=== PATIENT | female | born 1985 | race African-American/Black ===

== ENCOUNTER 2020-12-22 14:02 | Emergency (ER) | payer OTHER, SELFPAY ==
--- NOTE | 2020-12-22 14:08 | ED.EAR ---
HPI - Ear Problem General Chief complaint: Ear Stated complaint: ear pain Time Seen by Provider: 12/22/20 14:18 Source: patient and RN notes reviewed Mode of arrival: ambulatory Limitations: no limitations History of Present Illness HPI Narrative: 35-year-old female presents concern for left ear pain for several days. She denies rhinorrhea, nasal congestion, ear drainage, sore throat, decreased hearing, ringing in the ear. Reports taking Tylenol ibuprofen with relief. Denies cough, shortness of breath, loss of sense of taste or smell. Reports she may have problems with her wisdom teeth on the left side, however has not been to a dentist. MD Complaint: ear pain Related Data Allergies Allergy/AdvReac Type Severity Reaction Status Date / Time Sulfa (Sulfonamide Allergy Intermediate Unknown Verified 12/22/20 14:18 Antibiotics) sinus med Allergy Intermediate Unknown Uncoded 12/22/20 14:18 ANDALDACON Allergy Unknown Unknown Uncoded 12/22/20 14:18 Review of Systems Review of Systems: Narrative: CONSTITUTIONAL: Denies malaise, chills, sweats, or fever. EYES: Denies visual changes, redness, or discharge. ENT: Denies rhinorrhea, congestion, sinus pain, and sore throat. Reports left ear pain, denies drainage CARDIOVASCULAR: Denies chest pain, palpitations, or edema. RESPIRATORY: Denies cough or dyspnea. GASTROINTESTINAL: Denies abdominal pain, nausea, vomiting, diarrhea SKIN: Denies rash or itching. MUSCULOSKELETAL: Denies myalgia. NEUROLOGIC: Denies headache. All systems reviewed & are unremarkable except as noted in HPI and below PMFSH Comments At time of signature, agree with nursing past medical, surgical, social and family history. There is no relevant family history pertinent to the presenting complaint Exam Narrative: Exam Narrative: GENERAL: Well-appearing, well-nourished, and in no acute distress. HEAD: Normocephalic EYES: PERRLA, conjunctivae clear ENT: Nares clear, turbinates pink, no discharge. Mucous membranes moist. TM pearly rose with sharp light reflex bilaterally; no tragal tenderness. Oropharynx mildly erythematous without lesions. Tonsils not enlarged and without exudate, no drooling, no hoarseness, no trismus, uvula midline. NECK: Supple. No lymphadenopathy CHEST: Clear to auscultation, breath sounds equal. No wheezing, rhonchi, rales, or stridor. No respiratory distress, speaks in full sentences. HEART: Regular rate and rhythm. No murmur heard. SKIN: Warm, dry, no rash. NEURO: Alert and oriented x3. PSYCH: Normal mood and affect Course Course Emergency Course: Patient is aware of diagnosis, understands and agrees to treatment plan. Anticipatory guidance given. Patient agrees to follow-up as directed and is aware of reasons to seek care at the emergency department. Portions of this record may have been created with voice recognition software Vital Signs Vital signs: Reviewed. Medical Decision Making MDM Narrative Medical decision making narrative: Differential diagnosis considered: Ceron virus, strep pharyngitis, allergic rhinitis, upper respiratory tract infection, sinusitis, rhinosinusitis, nasopharyngitis. viral pharyngitis, otitis media, otitis externa, pneumonia, bronchitis, viral cough syndrome, viral syndrome, and influenza. Exam findings show no acute concerns or changes; patient is non-toxic appearing and is in no distress. Patient is appropriate for outpatient treatment and follow-up. Lab Data Lab results reviewed: Yes I reviewed the patient's lab results. Critical Care Time Critical Care Time Critical Care Time: No Discharge Plan Discharge Clinical Impression: Ear ache Patient Disposition: Home, Self-Care Condition: Stable Additional Instructions: 1) Please follow-up with your primary care doctor or dentist in the next 1-2 days. 2) If you have any urgent concerns please go to the ER. 3) Please take medications as prescribed, and use Tylenol and ibuprofen as needed for pain. Your r
[2020-12-22 14:10] VITALS: BP 124/83; PULSE 93; RESP 20; TEMP 37.1; O2SAT 100
== END 2020-12-22 14:40 | disposition home or self-care (01) ==
PROVIDERS: Emergency Provider Nurse Practitioner
DX: H92.02 Otalgia, left ear (principal)
CPT/HCPCS: 87081; 87880; 99213; G0463

== ENCOUNTER 2021-04-30 08:19 | Emergency (ER) | payer OTHER, SELFPAY ==
[2021-04-30 08:26] VITALS: BP 128/70; PULSE 78; RESP 16; TEMP 36.7; O2SAT 100
--- NOTE | 2021-04-30 09:38 | ED.URI ---
HPI - URI/Sore Throat General Chief Complaint: Upper Respiratory Infection Stated Complaint: voice sounds gravely Time Seen by Provider: 04/30/21 09:15 Source: patient, RN notes reviewed and old records reviewed Mode of arrival: ambulatory Limitations: no limitations History of Present Illness HPI Narrative: 36 year old female who presents to [facility] with complaints of awakening this morning with hoarseness to voice. Patient reports that her kids have all had colds lately and she has been exposed to them. Patient states that she does have history of some seasonal allergies. Patient denies any known fevers chills or sweats or any body aches,has not had COVID vaccinations. Patient denies any cough or any shortness of breath,no wheezing or any tachypnea. Patient has not taken any OTC medications. MD elicited complaint: other (hoarseness) Related Data Home Medications Medication Instructions Recorded Confirmed No Home Medications 04/30/21 04/30/21 Allergies Allergy/AdvReac Type Severity Reaction Status Date / Time Sulfa (Sulfonamide Allergy Intermediate Unknown Verified 04/30/21 08:47 Antibiotics) sinus med Allergy Intermediate Unknown Uncoded 12/22/20 14:18 ANDALDACON Allergy Unknown Unknown Uncoded 12/22/20 14:18 Review of Systems Review of Systems: CONSTITUTIONAL: Denies fever, chills, or sweats. EYES: Denies visual changes, redness, or discharge. ENT: Denies rhinorrhea, congestion, sore throat, or otalgia.hoarseness CARDIOVASCULAR: Denies chest pain, palpitations, or edema. RESPIRATORY: Denies cough or dyspnea. GASTROINTESTINAL: Denies abdominal pain, nausea, vomiting, or diarrhea. GENITOURINARY: Denies dysuria or hematuria. SKIN: Denies rash or itching. MUSCULOSKELETAL: Denies back pain, joint pain, or myalgia. NEUROLOGIC: Denies headache, numbness, or weakness. PSYCHIATRIC: Denies anxiety or depression. All systems reviewed & are unremarkable except as noted in HPI and below PMFSH Past Medical History Medical History (Updated 05/07/21 @ 14:25 by Viv Townsend NP) Asthma as child Seasonal allergies Surgical History Surgical History (Updated 05/07/21 @ 14:22 by Viv Townsend NP) History of loop electrical excision procedure (LEEP) Previous section X4 [place] teeth extracted Family History Family History (Updated 05/07/21 @ 14:23 by Viv Townsend NP) Mother COPD (chronic obstructive pulmonary disease) Asthma Cervical cancer Social History Social History (Updated 05/07/21 @ 14:24 by Viv Townsend NP) Smoking packs per day: 0.5 Smoking cigarettes per day: 10.0 Years smoked: 10 Smoking pack-years: 5.00 Smoking status: Current every day smoker Alcohol intake: current Alcohol use details: social Substance use: never Living arrangements: with family Gender identity (if verbalized by the patient): Female Comments At time of signature, agree with nursing past medical, surgical, social and family history. There is no relevant family history pertinent to the presenting complaint Exam Narrative: GENERAL: Well-appearing, well-nourished, and in no acute distress. HEAD: Normocephalic, atraumatic. EYES: PERRLA and EOMI. ENT: Nares clear, no rhinorrhea or epistaxis. Mucous membranes moist.TM's normal with good light reflex, throat pink with no lesions or exudates, no tonsil redness or enlargement, some post nasal drainage noted NECK: Supple.no lymphadenopathy CHEST: Clear to auscultation. No respiratory distress.SAO2 100% on room air HEART: Regular rate and rhythm. No murmur heard. Normal peripheral pulses. ABDOMEN: Soft, nontender, nondistended, normal active bowel sounds. EXTREMITIES: Normal range of motion. No edema. SKIN: Warm, dry, no rash. NEURO: No focal deficits. Alert and oriented x3. Course Vital Signs Vital signs: Vital Signs Temperature 36.7 C 04/30/21 08:26 Pulse Rate 78 04/30/21 08:26 Respiratory Rate 16
== END 2021-04-30 10:00 | disposition home or self-care (01) ==
PROVIDERS: Emergency Provider Registered Nurse
DX: R49.0 Dysphonia (principal); J06.9 Acute upper respiratory infection, unspecified
CPT/HCPCS: 87081; 87880; 99213; G0463

== ENCOUNTER 2021-09-08 11:40 | Emergency (ER) | payer OTHER, SELFPAY ==
[2021-09-08 11:44] VITALS: BP 106/64; PULSE 108; RESP 14; TEMP 37.1; O2SAT 100
--- NOTE | 2021-09-08 11:45 | ED.HA ---
HPI - Headache General Chief Complaint: Upper Respiratory Infection Stated Complaint: Headahce Time Seen by Provider: 09/08/21 11:45 Source: patient and RN notes reviewed History of Present Illness HPI Narrative: Patient is a 36-year-old female who presents the urgent care with complaints of headache, sinus pressure/congestion, sore throat and postnasal drainage. Patient states that started Tuesday night and 1 other person in the home has been symptomatic. That patient was tested at school today and has not had results. Patient states that she has a history of migraines which is just exacerbated the frontal headache. Patient has been taking Aleve, Tylenol, Nasonex. Denies of any known exposures to COVID. Patient is not vaccinated. No other acute complaints. No acute distress noted. Patient aware of the plan of care. Some parts of this dictation were generated by voice recognition software and may contain typographical and/or grammatical inaccuracies. Related Data Allergies Allergy/AdvReac Type Severity Reaction Status Date / Time Sulfa (Sulfonamide Allergy Intermediate Unknown Verified 09/08/21 11:49 Antibiotics) sinus med Allergy Intermediate Unknown Uncoded 12/22/20 14:18 ANDALDACON Allergy Unknown Unknown Uncoded 12/22/20 14:18 Review of Systems Review of Systems: CONSTITUTIONAL: Denies fever, chills, or sweats. EYES: Denies visual changes, redness, or discharge. ENT: Reports of sinus pressure/pain, sore throat and postnasal drainage CARDIOVASCULAR: Denies chest pain, palpitations, or edema. RESPIRATORY: Denies cough or dyspnea. GASTROINTESTINAL: Denies abdominal pain, nausea, vomiting, or diarrhea. GENITOURINARY: Denies dysuria or hematuria. SKIN: Denies rash or itching. MUSCULOSKELETAL: Denies back pain, joint pain, or myalgia. NEUROLOGIC: Reports of headache All other systems reviewed are negative, except as documented in HPI. [facility] Past Medical History Medical History (Updated 09/08/21 @ 11:56 by SATYA Andres) Asthma as child Seasonal allergies Surgical History Surgical History (Updated 05/07/21 @ 14:22 by Viv Townsend NP) History of loop electrical excision procedure (LEEP) Previous section X4 [place] teeth extracted Family History Family History (Updated 05/07/21 @ 14:23 by Viv Townsend NP) Mother COPD (chronic obstructive pulmonary disease) Asthma Cervical cancer Social History Social History (Updated 05/07/21 @ 14:24 by Viv Townsend NP) Smoking packs per day: 0.5 Smoking cigarettes per day: 10.0 Years smoked: 10 Smoking pack-years: 5.00 Smoking status: Current every day smoker Alcohol intake: current Alcohol use details: social Substance use: never Gender identity (if verbalized by the patient): Female Comments At the time of my signature, I reviewed and agree with the nursing past medical, surgical, social, and family history. There is no relevant family history pertinent to the patient complaint. Exam Narrative: GENERAL: This is a well-nourished, well-developed patient, in no apparent distress. HEAD: normocephalic, atraumatic. Frontal sinus tenderness EYES: PERRL. Sclera clear/white. Vision is grossly intact. EARS: External ears normal, auditory canals clear and without drainage, TMs normal without perforation. Hearing grossly intact. NOSE: External nose normal with no obvious nasal discharge, nares without redness, no rhinorrhea. THROAT: Mucous membranes moist moderate erythema in the posterior pharynx with moderate postnasal drainage NECK: Neck supple, non-tender without lymphadenopathy, masses or thyromegaly. CARDIOVASCULAR: Regular rate and rhythm without murmurs, gallops, or rubs. RESPIRATORY: Clear to auscultation. Breath sounds equal bilaterally. No wheezes, rales, or rhonchi. SKIN: warm, intact with no suspicious lesions or rash, good texture and turgor. NEURO: awake, alert, and oriented to person, place and ti
[2021-09-09 21:18] LABS: SARS-CoV-2 RNA PCR Positive
== END 2021-09-08 12:02 | disposition home or self-care (01) ==
PROVIDERS: Emergency Provider Nurse Practitioner Family; PCP Nurse Practitioner Family
DX: U07.1 COVID-19 (principal); F17.210 Nicotine dependence, cigarettes, uncomplicated
CPT/HCPCS: 99213; C9803; G0463; U0003; U0005

== ENCOUNTER 2021-12-29 10:10 | Emergency (ER) | payer OTHER, SELFPAY ==
--- NOTE | 2021-12-29 10:16 | ED.URI ---
HPI - URI/Sore Throat General Chief Complaint: Upper Respiratory Infection Stated Complaint: Ear Pain/Sore Throat Time Seen by Provider: 12/29/21 10:16 Source: patient and RN notes reviewed History of Present Illness HPI Narrative: Patient is a 36-year-old female who presents the urgent care with complaints of ear pain and sore throat that started Tuesday. Patient states that she has been taking Tylenol and Flonase. Patient denies of any fever, chills, nausea or vomiting. Denies of any known exposures to illness. No other acute complaints. No acute distress noted. Patient is aware of the plan of care. Some parts of this dictation were generated by voice recognition software and may contain typographical and/or grammatical inaccuracies. Related Data Home Medications Medication Instructions Recorded Confirmed No Home Medications 12/29/21 12/29/21 Allergies Allergy/AdvReac Type Severity Reaction Status Date / Time Sulfa (Sulfonamide Allergy Intermediate Unknown Verified 12/29/21 10:27 Antibiotics) sinus med Allergy Intermediate Unknown Uncoded 12/29/21 10:27 ANDALDACON Allergy Unknown Unknown Uncoded 12/29/21 10:27 Review of Systems Review of Systems: CONSTITUTIONAL: Denies fever, chills, or sweats. EYES: Denies visual changes, redness, or discharge. ENT: Reports of otalgia and sore throat CARDIOVASCULAR: Denies chest pain, palpitations, or edema. RESPIRATORY: Denies cough or dyspnea. GASTROINTESTINAL: Denies abdominal pain, nausea, vomiting, or diarrhea. GENITOURINARY: Denies dysuria or hematuria. SKIN: Denies rash or itching. MUSCULOSKELETAL: Denies back pain, joint pain, or myalgia. NEUROLOGIC: Denies headache, numbness, or weakness. All other systems reviewed are negative, except as documented in HPI. [facility] Past Medical History Medical History (Updated 12/29/21 @ 11:08 by SATYA Andres) Asthma as child Seasonal allergies Surgical History Surgical History (Updated 05/07/21 @ 14:22 by Viv Townsend NP) History of loop electrical excision procedure (LEEP) Previous section X4 [place] teeth extracted Family History Family History (Updated 05/07/21 @ 14:23 by Viv Townsend NP) Mother COPD (chronic obstructive pulmonary disease) Asthma Cervical cancer Social History Social History (Updated 05/07/21 @ 14:24 by Viv Townsend NP) Smoking packs per day: 0.5 Smoking cigarettes per day: 10.0 Years smoked: 10 Smoking pack-years: 5.00 Smoking status: Current every day smoker Alcohol intake: current Alcohol use details: social Substance use: never Gender identity (if verbalized by the patient): Female Comments At the time of my signature, I reviewed and agree with the nursing past medical, surgical, social, and family history. There is no relevant family history pertinent to the patient complaint. Exam Narrative: GENERAL: This is a well-nourished, well-developed patient, in no apparent distress. HEAD: normocephalic, atraumatic. EYES: PERRL. Sclera clear/white. Vision is grossly intact. EARS: External ears normal, auditory canals clear and without drainage, mild fluid noted behind bilateral TMs without otitis. TMs normal without perforation. Hearing grossly intact. NOSE: External nose normal with no obvious nasal discharge, nares without redness, no rhinorrhea. THROAT: Mucous membranes moist, posterior pharynx clear. Moderate postnasal drainage NECK: Neck supple CARDIOVASCULAR: Regular rate and rhythm without murmurs, gallops, or rubs. RESPIRATORY: Clear to auscultation. Breath sounds equal bilaterally. No wheezes, rales, or rhonchi. SKIN: warm, intact with no suspicious lesions or rash, good texture and turgor. NEURO: awake, alert, and oriented to person, place and time. There were no obvious focal neurologic abnormalities. EXTREMITIES: No clubbing, cyanosis, or edema. Course Course Level of Care: Express Care Visit Vital Signs
[2021-12-29 10:20] VITALS: BP 104/56; PULSE 79; RESP 18; TEMP 36.7; O2SAT 100
== END 2021-12-29 11:10 | disposition home or self-care (01) ==
PROVIDERS: Emergency Provider Nurse Practitioner Family; PCP Nurse Practitioner Family
DX: J32.9 Chronic sinusitis, unspecified (principal); F17.210 Nicotine dependence, cigarettes, uncomplicated
CPT/HCPCS: 87081; 87880; 99213; G0463

== ENCOUNTER 2022-08-19 13:42 | Emergency (ER) | payer BC, OTHER, SELFPAY ==
--- NOTE | ~2022-08-19 | XR_ITS ---
Right fifth toe Technique: AP, oblique, and lateral views were obtained. Clinical History: Trauma, pain Findings: No acute fracture or dislocation is seen. Osseous alignment is anatomic. Joint spaces are p reserved without erosive or degenerative change. Soft tissues are unremarkable. Impression: No significant abnormality seen. Reviewed, dictated and finalized at [facility]. [employer] Impression: No significant abnormality seen.
--- NOTE | 2022-08-19 13:44 | ED.LOWEXIN ---
HPI - Extremity Injury (Lower) General Chief Complaint: Extremity Injury, Lower Stated Complaint: Right Toe Injury Time Seen by Provider: 08/19/22 13:44 Source: patient and RN notes reviewed History of Present Illness HPI Narrative: patient is a 37-year-old female who presents to the Urgent Care with complaints of right little toe pain. Patient states that she stepped on the baseboard approximately 1 hour prior to arrival. Patient has not taken anything [id number] for her pain. No other acute complaints. No acute distress noted. Patient aware of the plan of care. Some parts of this dictation were generated by voice recognition software and may contain typographical and/or grammatical inaccuracies. Related Data Home Medications Medication Instructions Recorded Confirmed No Home Medications 12/29/21 12/29/21 Allergies Allergy/AdvReac Type Severity Reaction Status Date / Time Sulfa (Sulfonamide Allergy Intermediate Unknown Verified 12/29/21 10:27 Antibiotics) sinus med Allergy Intermediate Unknown Uncoded 12/29/21 10:27 ANDALDACON Allergy Unknown Unknown Uncoded 12/29/21 10:27 Review of Systems Review of Systems: CONSTITUTIONAL: Denies fever, chills, or sweats. EYES: Denies visual changes, redness, or discharge. ENT: Denies rhinorrhea, congestion, sore throat, or otalgia. CARDIOVASCULAR: Denies chest pain, palpitations, or edema. RESPIRATORY: Denies cough or dyspnea. GASTROINTESTINAL: Denies abdominal pain, nausea, vomiting, or diarrhea. GENITOURINARY: Denies dysuria or hematuria. SKIN: Denies rash or itching. MUSCULOSKELETAL: Reports of right little toe pain NEUROLOGIC: Denies headache, numbness, or weakness. All other systems reviewed are negative, except as documented in HPI. [facility] Past Medical History Medical History (Updated 08/19/22 @ 14:28 by SATYA Andres) Asthma as child Seasonal allergies Surgical History Surgical History (Updated 05/07/21 @ 14:22 by Viv Townsend NP) History of loop electrical excision procedure (LEEP) Previous section X4 [place] teeth extracted Family History Family History (Updated 05/07/21 @ 14:23 by Viv Townsend NP) Mother COPD (chronic obstructive pulmonary disease) Asthma Cervical cancer Social History Social History (Updated 05/07/21 @ 14:24 by Viv Townsend NP) Smoking packs per day: 0.5 Smoking cigarettes per day: 10.0 Years smoked: 10 Smoking pack-years: 5.00 Smoking status: Current every day smoker Alcohol intake: current Alcohol use details: social Substance use: never Gender identity (if verbalized by the patient): Female Comments At the time of my signature, I reviewed and agree with the nursing past medical, surgical, social, and family history. There is no relevant family history pertinent to the patient complaint. Exam Narrative: GENERAL: This is a well-nourished, well-developed patient, in no apparent distress. HEAD: normocephalic, atraumatic. EYES: PERRL. Sclera clear/white. Vision is grossly intact. EARS: External ears normal NOSE: External nose normal with no obvious nasal discharge, nares without redness, no rhinorrhea. THROAT: Mucous membranes moist NECK: Neck supple SKIN: warm, intact with no suspicious lesions or rash, good texture and turgor. NEURO: awake, alert, and oriented to person, place and time. There were no obvious focal neurologic abnormalities. EXTREMITIES: mild edema and erythema noted to the right 5th digit. Positive strong right pedal pulse with capillary refill less than 2 seconds. Range of motion right lower extremity within normal limits. Course Course Level of Care: Express Care Visit Vital Signs Vital signs: Vital Signs Temperature 98.6 F 08/19/22 13:55 Pulse Rate 76 08/19/22 13:55 Respiratory Rate 16 08/19/22 13:55 Blood Pressure 130/76 08/19/22 13:55 Pulse Oximetry 100 08/19/22 13:55 Oxygen Delivery Room Air
[2022-08-19 13:55] VITALS: BP 130/76; PULSE 76; RESP 16; TEMP 37; O2SAT 100
== END 2022-08-19 14:32 | disposition home or self-care (01) ==
PROVIDERS: Emergency Provider Nurse Practitioner Family; PCP Nurse Practitioner Family
DX: S93.504A Unspecified sprain of right lesser toe(s), initial encounter (principal); F17.210 Nicotine dependence, cigarettes, uncomplicated; X58.XXXA Exposure to other specified factors, initial encounter
CPT/HCPCS: 73660; 99213; G0463

== ENCOUNTER 2022-10-05 12:06 | Emergency (ER) | payer BC, OTHER, SELFPAY ==
[2022-10-05 12:06] VITALS: BP 122/64; PULSE 89; RESP 20; TEMP 36.8; O2SAT 100
--- NOTE | 2022-10-05 12:40 | ED.URI ---
HPI - URI/Sore Throat General Chief Complaint: Upper Respiratory Infection Stated Complaint: Sinus Pain Time Seen by Provider: 10/05/22 12:41 Source: patient, RN notes reviewed and old records reviewed Mode of arrival: ambulatory Limitations: no limitations History of Present Illness HPI Narrative: 37 year old female accompanied by daughter who is also ill with complaints of sinus congestion and drainage intermittently for 1 month duration with increased symptoms for past 2 days. She reports that she has facial pressure and acute headache pain today,bilateral ear popping, and she has green nasal congestion with drainage. Patient reports that she has been taking DayQuil and NyQuil and using nasal spray with no relief of her symptoms, denies any fevers chills or body aches. MD elicited complaint: rhinorrhea, nasal congestion, sinus pain and other (headache) Pertinent past history: sinusitis and seasonal allergies Onset (ago): month(s) (1 with increased symptoms 2 days) Pain scale (0-10): 9 Treatments prior to arrival: cold medicine and other (nasal spray) Related Data Allergies Allergy/AdvReac Type Severity Reaction Status Date / Time Sulfa (Sulfonamide Allergy Intermediate Unknown Verified 12/29/21 10:27 Antibiotics) sinus med Allergy Intermediate Unknown Uncoded 12/29/21 10:27 ANDALDACON Allergy Unknown Unknown Uncoded 12/29/21 10:27 Review of Systems Review of Systems: CONSTITUTIONAL: Denies malaise, chills, sweats, or fever. EYES: Denies visual changes, redness, or discharge. ENT: Reports rhinorrhea, congestion, sinus pain, otalgia no sore throat. CARDIOVASCULAR: Denies chest pain, palpitations, or edema. RESPIRATORY: Reports occasional cough.? Denies dyspnea. GASTROINTESTINAL: Denies abdominal pain, nausea, vomiting, diarrhea SKIN: Denies rash or itching. MUSCULOSKELETAL: Denies myalgia. NEUROLOGIC:Reports headache. All systems reviewed & are unremarkable except as noted in HPI and below PMFSH Past Medical History Medical History (Updated 10/06/22 @ 09:37 by Viv Townsend NP) Asthma as child Hx of migraines Seasonal allergies Surgical History Surgical History (Updated 05/07/21 @ 14:22 by Viv Townsend NP) History of loop electrical excision procedure (LEEP) Previous section X4 [place] teeth extracted Family History Family History (Updated 05/07/21 @ 14:23 by Viv Townsend NP) Mother COPD (chronic obstructive pulmonary disease) Asthma Cervical cancer Social History Social History (Updated 10/06/22 @ 09:30 by Viv Townsend NP) Smoking packs per day: 0.5 Smoking cigarettes per day: 10.0 Years smoked: 10 Smoking pack-years: 5.00 Smoking status: Current every day smoker Tobacco type: e-cigarettes/vaping Additional smoking assessment comments: former cigatette use now vapes Alcohol intake: current Alcohol use details: social Substance use: never Living arrangements: with family Gender identity (if verbalized by the patient): Female Comments At time of signature, agree with nursing past medical, surgical, social and family history. There is no relevant family history pertinent to the presenting complaint Exam Narrative: GENERAL: Well-appearing, well-nourished, and in no acute distress. HEAD: Normocephalic EYES: PERRLA, conjunctivae clear ENT: Nares clear, turbinates edematous and erythematous, green yellow nasal discharge . Mucous membranes moist.sinus pressure with frontal headache pain, TM pearly rose with dull light reflex bilaterally; no tragal tenderness. Oropharynx erythematous without lesions. Tonsils not enlarged and without exudate, no drooling, no hoarseness, no trismus, uvula midline.post nasal discharge noted. NECK: Supple. No lymphadenopathy CHEST: Clear to auscultation, breath sounds equal. No wheezing, rhonchi, rales, or stridor. No respiratory distress, speaks in full sentences.dry cough noted with SAO2 100%
== END 2022-10-05 13:00 | disposition home or self-care (01) ==
PROVIDERS: Emergency Provider Registered Nurse; PCP Nurse Practitioner Family
DX: J32.9 Chronic sinusitis, unspecified (principal); F17.290 Nicotine dependence, other tobacco product, uncomplicated
CPT/HCPCS: 99213; G0463

== ENCOUNTER 2023-08-06 16:47 | Emergency (ER) | payer OTHER, SELFPAY ==
[2023-08-06 16:52] VITALS: BP 125/75; PULSE 114; RESP 18; TEMP 38.1; O2SAT 99
--- NOTE | 2023-08-06 17:06 | ED.URI ---
HPI - URI/Sore Throat General Chief Complaint: Upper Respiratory Infection Stated Complaint: Headace/Fever/Body Aches Time Seen by Provider: 08/06/23 17:06 Source: patient, RN notes reviewed and old records reviewed Mode of arrival: ambulatory Limitations: no limitations History of Present Illness HPI Narrative: 38-year-old female presents to [facility] with complaints fever, chills myalgia, scratchy throat that started today. Patient states children have been sick. patient taking Tylenol without rel MD elicited complaint: fever Onset (ago): day(s) (1) Related Data Home Medications Medication Instructions Recorded Confirmed No Home Medications 08/06/23 08/06/23 Allergies Allergy/AdvReac Type Severity Reaction Status Date / Time Sulfa (Sulfonamide Allergy Intermediate Unknown Verified 08/06/23 17:07 Antibiotics) Review of Systems Constitutional: Constitutional: Reports as per HPI, Reports body ache(s), Reports chills, Reports fatigue and Reports fever(s) Eyes: Eyes: Reports no additional eye complaints ENT: Reports as per HPI and Reports sore throat Cardiovascular: Cardiovascular: Reports no additional cardiovascular complaints Respiratory: Respiratory: Reports no additional respiratory complaints Neurologic: Reports system reviewed and no additional complaints, except as documented [facility] Past Medical History Medical History (Updated 08/06/23 @ 17:17 by Tanya Dodd APRN) Asthma as child Hx of migraines Seasonal allergies Surgical History Surgical History (Updated 05/07/21 @ 14:22 by Viv Townsend NP) History of loop electrical excision procedure (LEEP) Previous section X4 [place] teeth extracted Family History Family History (Updated 05/07/21 @ 14:23 by Viv Townsend NP) Mother COPD (chronic obstructive pulmonary disease) Asthma Cervical cancer Social History Social History (Updated 10/06/22 @ 09:30 by Viv Townsend NP) Smoking packs per day: 0.5 Smoking cigarettes per day: 10.0 Years smoked: 10 Smoking pack-years: 5.00 Smoking status: Current every day smoker Tobacco type: e-cigarettes/vaping Additional smoking assessment comments: former cigatette use now vapes Alcohol intake: current Alcohol use details: social Substance use: never Living arrangements: with family Gender identity (if verbalized by the patient): Female Comments At the time of my signature, I reviewed and agree with the nursing past medical, surgical, social, and family history. There is no relevant family history pertinent to the patient complaint. Exam Const: General: cooperative, healthy appearing, no acute distress and well nourished Nutritional Appearance: well nourished Orientation/consciousness: patient oriented x3 Limitations: no limitations HENMT: Head: normal to inspection and normocephalic Ears: external ears normal, TM's normal bilaterally, mastoids normal and Abnormal EAC present Face/Nose/Sinus: normal facial exam Face and sinus: normal facial exam Mouth: Yes Normal oral and palatal mucosa present, Yes oropharynx normal and Yes moist mucous membranes Throat: posterior oropharynx normal, tonsils normal, uvula midline and no uvular edema Eyes: General: appearance normal, both eyes and all related structures Sclera: sclerae normal Pupils: Equal, round and reactive pupils present Resp: Effort & Inspection: normal respiratory effort, able to speak in complete sentences, no audible wheezes, no cough, no respiratory distress and no retractions Auscultation: clear to auscultation bilaterally, no crackles, no rales, no rhonchi and no wheezes Cardio: Rate: regular rate Rhythm: regular rhythm Skin: General skin exam: normal color and no rashes or lesions noted Neuro: General: patient oriented x3 Cranial nerves: Yes Equal, round and reactive pupils present Psych: Appearance: grossly normal Course Course Emergency Course: So
== END 2023-08-06 17:20 | disposition home or self-care (01) ==
PROVIDERS: Emergency Provider Registered Nurse
DX: B34.9 Viral infection, unspecified (principal); F17.290 Nicotine dependence, other tobacco product, uncomplicated
CPT/HCPCS: 87081; 87804; 87880; 99213; G0463

== ENCOUNTER 2023-12-25 13:59 | Emergency (ER) | payer OTHER, SELFPAY ==
--- NOTE | ~2023-12-25 | XR_ITS ---
EXAMINATION: XR foot LT min 3V DATE: 12/25/2023 14:17 INDICATION: Left foot injury. TECHNIQUE: 4 views of left foot were obtained. COMPARISON: None. FINDINGS: Bone alignment is normal. There is a nondisplaced oblique fracture involving head and diaph ysis of fourth proximal phalanx. Joint spaces are normal. IMPRESSION: 1. Nondisplaced oblique fracture involving head and diaphysis of fourth proximal phalanx. Reviewed, dictated and finalized at location E. IMPRESSION: 1. Nondisplaced oblique fracture involving head and diaphysis of fourth proxima l phalanx.
[2023-12-25 14:04] VITALS: BP 126/66; PULSE 93; RESP 16; TEMP 36.9; O2SAT 100
--- NOTE | 2023-12-25 14:11 | ED.LOWEXIN ---
HPI - Extremity Injury (Lower) General Chief Complaint: Extremity Injury, Lower Stated Complaint: Left Foot/Ankle Injury History of Present Illness HPI Narrative: PATIENT PRESENTS WITH LEFT FOOT INJURY Related Data Home Medications Medication Instructions Recorded Confirmed No Home Medications 08/06/23 08/06/23 Allergies Allergy/AdvReac Type Severity Reaction Status Date / Time Sulfa (Sulfonamide Allergy Intermediate Unknown Verified 08/06/23 17:07 Antibiotics) Review of Systems Review of Systems: CONSTITUTIONAL: DENIES FEVER, CHILLS, OR SWEATS. EYES: DENIES VISUAL CHANGES, REDNESS, OR DISCHARGE. ENT: DENIES RHINORRHEA, CONGESTION, SORE THROAT, OR OTALGIA. CARDIOVASCULAR: DENIES CHEST PAIN, PALPITATIONS, OR EDEMA. RESPIRATORY: DENIES COUGH OR DYSPNEA. GASTROINTESTINAL: DENIES ABDOMINAL PAIN, NAUSEA, VOMITING, OR DIARRHEA. GENITOURINARY: DENIES DYSURIA OR HEMATURIA. SKIN: DENIES RASH OR ITCHING. MUSCULOSKELETAL: DENIES BACK PAIN, JOINT PAIN, OR MYALGIA. NEUROLOGIC: DENIES HEADACHE, NUMBNESS, OR WEAKNESS. PSYCHIATRIC: DENIES ANXIETY OR DEPRESSION. [facility] Past Medical History Medical History (Updated 12/25/23 @ 14:14 by SATYA Coronel) Asthma as child Hx of migraines Seasonal allergies Surgical History Surgical History (Updated 05/07/21 @ 14:22 by Viv Townsend NP) History of loop electrical excision procedure (LEEP) Previous section X4 [place] teeth extracted Family History Family History (Updated 05/07/21 @ 14:23 by Viv Townsend NP) Mother COPD (chronic obstructive pulmonary disease) Asthma Cervical cancer Social History Social History (Updated 10/06/22 @ 09:30 by Viv Townsend NP) Smoking packs per day: 0.5 Smoking cigarettes per day: 10.0 Years smoked: 10 Smoking pack-years: 5.00 Smoking status: Current every day smoker Tobacco type: e-cigarettes/vaping Additional smoking assessment comments: former cigatette use now vapes Alcohol intake: current Alcohol use details: social Substance use: never Living arrangements: with family Gender identity (if verbalized by the patient): Female Comments AT TIME OF SIGNATURE, AGREE WITH NURSING PAST MEDICAL, SURGICAL, SOCIAL AND FAMILY HISTORY. THERE IS NO RELEVANT FAMILY HISTORY PERTINENT TO THE PRESENTING COMPLAINT Exam Narrative: GENERAL: WELL-APPEARING, WELL-NOURISHED, AND IN NO ACUTE DISTRESS. HEAD: NORMOCEPHALIC, ATRAUMATIC. EYES: PERRLA AND EOMI. ENT: NARES CLEAR, NO RHINORRHEA OR EPISTAXIS. MUCOUS MEMBRANES MOIST. NECK: SUPPLE. CHEST: CLEAR TO AUSCULTATION. NO RESPIRATORY DISTRESS. HEART: REGULAR RATE AND RHYTHM. NO MURMUR HEARD. NORMAL PERIPHERAL PULSES. ABDOMEN: SOFT, NONTENDER, NONDISTENDED, NORMAL ACTIVE BOWEL SOUNDS. EXTREMITIES: NORMAL RANGE OF MOTION. NO EDEMA. ANKLE /FOOT EXAM SKIN INTACT. NORMAL DP PULSE, NORMAL CAP REFILL. NORMAL SENSATION. SKIN: WARM, DRY, NO RASH. NEURO: NO FOCAL DEFICITS. ALERT AND ORIENTED X3. [place] COMA SCALE EYE OPENING: SPONTANEOUS 4 [place] COMA SCALE MOTOR: OBEYS COMMANDS 6 [place] COMA SCALE VERBAL: ORIENTED 5 [place] COMA SCALE TOTAL 15 Course Course Level of Care: Express Care Visit Vital Signs Vital signs: Vital Signs Temperature 36.9 C 12/25/23 14:04 Pulse Rate 93 12/25/23 14:04 Respiratory Rate 16 12/25/23 14:04 Blood Pressure 126/66 12/25/23 14:04 Pulse Oximetry 100 12/25/23 14:04 Oxygen Delivery Room Air 12/25/23 14:04 Temperature 36.9 C 12/25/23 14:04 Pulse Rate 93 12/25/23 14:04 Respiratory Rate 16 12/25/23 14:04 Blood Pressure 126/66 12/25/23 14:04 Pulse Oximetry 100 12/25/23 14:04 Oxygen Delivery Room Air 12/25/23 14:04 MDM - Extremity Injury (Lower) Imaging Data My impression: ?Nondisplaced oblique fracture involving head and diaphysis of fourth proximal phalanx. LEFTFOOT Radiologist's impression: ?Nondisplaced oblique fracture involving head a
== END 2023-12-25 14:42 | disposition home or self-care (01) ==
PROVIDERS: Emergency Provider Nurse Practitioner Family; PCP Nurse Practitioner Family
DX: S90.32XA Contusion of left foot, initial encounter (principal); X58.XXXA Exposure to other specified factors, initial encounter; F17.290 Nicotine dependence, other tobacco product, uncomplicated
CPT/HCPCS: 73630; 99213; G0463

== ENCOUNTER 2024-02-19 16:09 | Emergency (ER) | payer OTHER, SELFPAY ==
[2024-02-19 16:14] VITALS: BP 138/91; PULSE 83; RESP 20; TEMP 37.3; O2SAT 100
--- NOTE | 2024-02-19 16:20 | ED.DENTAL ---
HPI - Dental/Oral General Chief complaint: Dental/Oral Stated complaint: Toothache History of Present Illness HPI Narrative: Patient presents with dental pain to her right lower tooth. Dental HPI NO FEVER. NO JAW SWELLING. NO NECK SWELLING. NO LIMITATION WITH SPEAKING OR SWALLOWING. HAS A HISTORY OF DENTAL CARIES. HAS NOT SEEN A DENTIST RECENTLY. Related Data Allergies Allergy/AdvReac Type Severity Reaction Status Date / Time Sulfa (Sulfonamide AdvReac Severe Hallucinati Verified 02/19/24 16:19 Antibiotics) ng Review of Systems Review of Systems: CONSTITUTIONAL: Denies fever, chills, or sweats. EYES: Denies visual changes, redness, or discharge. ENT: Denies rhinorrhea, congestion, sore throat, or otalgia. NO FEVER. NO JAW SWELLING. NO NECK SWELLING. NO LIMITATION WITH SPEAKING OR SWALLOWING. HAS A HISTORY OF DENTAL CARIES. HAS NOT SEEN A DENTIST RECENTLY. CARDIOVASCULAR: Denies chest pain, palpitations, or edema. RESPIRATORY: Denies cough or dyspnea. GASTROINTESTINAL: Denies abdominal pain, nausea, vomiting, or diarrhea. GENITOURINARY: Denies dysuria or hematuria. SKIN: Denies rash or itching. MUSCULOSKELETAL: Denies back pain, joint pain, or myalgia. NEUROLOGIC: Denies headache, numbness, or weakness. PSYCHIATRIC: Denies anxiety or depression. [facility] Past Medical History Medical History (Updated 02/19/24 @ 16:24 by SATYA Coronel) Asthma as child Hx of migraines Seasonal allergies Surgical History Surgical History (Updated 05/07/21 @ 14:22 by Viv Townsend NP) History of loop electrical excision procedure (LEEP) Previous section X4 [place] teeth extracted Family History Family History (Updated 05/07/21 @ 14:23 by Viv Townsend NP) Mother COPD (chronic obstructive pulmonary disease) Asthma Cervical cancer Social History Social History (Updated 10/06/22 @ 09:30 by Viv Townsend NP) Smoking packs per day: 0.5 Smoking cigarettes per day: 10.0 Years smoked: 10 Smoking pack-years: 5.00 Smoking status: Current every day smoker Tobacco type: e-cigarettes/vaping Additional smoking assessment comments: former cigatette use now vapes Alcohol intake: current Alcohol use details: social Substance use: never Living arrangements: with family Gender identity (if verbalized by the patient): Female Comments At time of signature, agree with nursing past medical, surgical, social and family history. There is no relevant family history pertinent to the presenting complaint Exam Narrative: GENERAL: Well-appearing, well-nourished, and in no acute distress. HEAD: Normocephalic, atraumatic. EYES: PERRLA and EOMI. ENT: Nares clear, no rhinorrhea or epistaxis. Mucous membranes moist. NO CHRIS APICAL SWELLING, TOOTH TENDER TO PALPATION. NO FACIAL SWELLING. NO TRISMUS. ABLE TO OPEN MOUTH FULLY. NO NECK SWELLING OR ILDA'S ANGINA. NO ABSCESS TO BE DRAINED. no drooling, trismus, facial asymmetry or significant neck swelling tooth 32 NECK: Supple. CHEST: Clear to auscultation. No respiratory distress. HEART: Regular rate and rhythm. No murmur heard. Normal peripheral pulses. ABDOMEN: Soft, nontender, nondistended, normal active bowel sounds. EXTREMITIES: Normal range of motion. No edema. SKIN: Warm, dry, no rash. NEURO: No focal deficits. Alert and oriented x3. [place] Coma Scale Eye Opening: Spontaneous 4 [place] Coma Scale Motor: Obeys Commands 6 [place] Coma Scale Verbal: Oriented 5 [place] Coma Scale Total 15 Course Course Level of Care: Express Care Visit Vital Signs Vital signs: Vital Signs Temperature 37.3 C 02/19/24 16:14 Pulse Rate 83 02/19/24 16:14 Respiratory Rate 02/19/24 16:14 Blood Pressure 138/91 H 02/19/24 16:14 Pulse Oximetry 100 02/19/24 16:14 Oxygen Delivery Room Air 02/19/24 16:14 Temperature 37.3 C 02/19/24 16:14 Pulse Rate 83 02/19/24 16:14 Respiratory Rate 02/19/24 16:14 Blood
== END 2024-02-19 16:29 | disposition home or self-care (01) ==
PROVIDERS: Emergency Provider Nurse Practitioner Family; PCP Nurse Practitioner Family
DX: K02.9 Dental caries, unspecified (principal); K04.7 Periapical abscess without sinus; F17.290 Nicotine dependence, other tobacco product, uncomplicated
CPT/HCPCS: 99213; G0463

== ENCOUNTER 2024-03-14 11:29 | Emergency (ER) | payer OTHER, SELFPAY ==
[2024-03-14 11:34] VITALS: BP 117/64; PULSE 91; RESP 16; TEMP 36.8; O2SAT 100
--- NOTE | 2024-03-14 12:17 | ED.BURNSMOKE ---
HPI - Burn/Smoke Inhalation General Chief complaint: Burn/Smoke Inhalation Stated complaint: burn on right wrist Time Seen by Provider: 03/14/24 12:11 Source: patient and RN notes reviewed Mode of arrival: ambulatory Limitations: no limitations History of Present Illness HPI Narrative: Patient presents today with a burn to the anterior right wrist that was sustained last night with a splashed grease. She has tried washing the area, applying Neosporin, butter, and mustard without relief of symptoms. Currently rates her pain 6/10. She is up-to-date on her tetanus vaccine. Related Data Home Medications Medication Instructions Recorded Confirmed albuterol sulfate 90 mcg/actuation 2 puff inhalation QID PRN 03/14/24 03/14/24 aerosol inhaler Shortness Of Breath Allergies Allergy/AdvReac Type Severity Reaction Status Date / Time Sulfa (Sulfonamide AdvReac Severe Hallucinati Verified 03/14/24 12:05 Antibiotics) ng Review of Systems Review of Systems: CONSTITUTIONAL: Denies body aches, fever, chills, or sweats. EYES: Denies visual changes, redness, or discharge. ENT: Denies rhinorrhea, congestion, sore throat, or otalgia. CARDIOVASCULAR: Denies chest pain, palpitations, or edema. RESPIRATORY: Denies cough or dyspnea. GASTROINTESTINAL: Denies abdominal pain, nausea, vomiting, or diarrhea. GENITOURINARY: Denies dysuria or hematuria. SKIN: Denies rash, itching. + burn to right wrist MUSCULOSKELETAL: Denies back pain, joint pain, or myalgia. NEUROLOGIC: Denies headache, numbness, tingling, or weakness. PSYCH: Denies depression or anxiety. [facility] Past Medical History Medical History Asthma as child Hx of migraines Seasonal allergies Surgical History Surgical History History of loop electrical excision procedure (LEEP) Previous section X4 [place] teeth extracted Family History Family History Mother COPD (chronic obstructive pulmonary disease) Asthma Cervical cancer Social History Social History Smoking packs per day: 0.5 Smoking cigarettes per day: 10.0 Years smoked: 10 Smoking pack-years: 5.00 Smoking status: Current every day smoker Tobacco type: e-cigarettes/vaping Additional smoking assessment comments: former cigatette use now vapes Alcohol intake: current Alcohol use details: social Substance use: never Living arrangements: with family Gender identity (if verbalized by the patient): Female Comments At time of signature, I have reviewed and agree with nursing past medical, surgical, social and family history unless otherwise noted. Please see nursing chart for further information. There is no relevant family history pertinent to the presenting complaint Exam Narrative: GENERAL: Well-appearing, well-nourished, and in no acute distress. HEAD: Normocephalic, atraumatic. EYES: EOMI. No redness or drainage. Conjunctivae normal. ENT: Mucous membranes pink and moist. NECK: Normal AROM. CHEST: No respiratory distress. EXTREMITIES: Normal range of motion. No edema. SKIN: Warm, dry, no rash. Capillary refill normal. Normal skin turgor. 2 x 0.5 cm intact blister to the right anterior wrist. No swelling or redness noted. Distal sensation intact. Capillary refill normal. Radial pulse normal. Full range of motion of the wrist. NEURO: No focal deficits. Alert and oriented x3. Gait steady. PSYCH: Normal affect. No signs of depression or anxiety. Course Course Level of Care: Express Care Visit Vital Signs Vital signs: Vital Signs Temperature 98.2 F 03/14/24 11:34 Pulse Rate 91 03/14/24 11:34 Respiratory Rate 16 03/14/24 11:34 Blood Pressure 117/64 03/14/24 11:34 Pulse Oximetry 100 03/14
== END 2024-03-14 12:24 | disposition home or self-care (01) ==
PROVIDERS: Emergency Provider Nurse Practitioner; PCP Nurse Practitioner Family
DX: T23.271A Burn of second degree of right wrist, initial encounter (principal); X10.2XXA Contact with fats and cooking oils, initial encounter; F17.290 Nicotine dependence, other tobacco product, uncomplicated
CPT/HCPCS: 99212; G0463

== ENCOUNTER 2024-04-16 13:10 | Emergency (ER) | payer OTHER, SELFPAY ==
[2024-04-16 13:18] VITALS: BP 122/80; PULSE 85; RESP 20; TEMP 37.1; O2SAT 100
--- NOTE | 2024-04-16 13:37 | ED.SKABFB ---
HPI - Skin/Abscess/Foreign Bdy General Chief complaint: Skin/Abscess/Foreign Body Stated complaint: Rash Time Seen by Provider: 04/16/24 13:37 Source: patient Mode of arrival: ambulatory Limitations: no limitations History of Present Illness HPI narrative: 39 yo F presents with c/o itchy rash to L forearm and R upper arm. Just started after pt outside in weeds. Thinks she has poison irina. All systems reviewed and negative except as noted above. Related Data Allergies Allergy/AdvReac Type Severity Reaction Status Date / Time Sulfa (Sulfonamide AdvReac Severe Hallucinati Verified 03/14/24 12:05 Antibiotics) ng Review of Systems Review of Systems: CONSTITUTIONAL: Denies fever, chills, or sweats. EYES: Denies visual changes, redness, or discharge. ENT: Denies rhinorrhea, congestion, sore throat, or otalgia. CARDIOVASCULAR: Denies chest pain, palpitations, or edema. RESPIRATORY: Denies cough or dyspnea. GASTROINTESTINAL: Denies abdominal pain, nausea, vomiting, or diarrhea. GENITOURINARY: Denies dysuria or hematuria. SKIN: Reports rash and itching. MUSCULOSKELETAL: Denies back pain, joint pain, or myalgia. NEUROLOGIC: Denies headache, numbness, or weakness. PSYCHIATRIC: Denies anxiety or depression. All other systems reviewed are negative, except as documented in HPI. [facility] Past Medical History Medical History Asthma as child Hx of migraines Seasonal allergies Surgical History Surgical History History of loop electrical excision procedure (LEEP) Previous section X4 [place] teeth extracted Family History Family History Mother COPD (chronic obstructive pulmonary disease) Asthma Cervical cancer Social History Social History Smoking packs per day: 0.5 Smoking cigarettes per day: 10.0 Years smoked: 10 Smoking pack-years: 5.00 Smoking status: Current every day smoker Tobacco type: e-cigarettes/vaping Additional smoking assessment comments: former cigatette use now vapes Alcohol intake: current Alcohol use details: social Substance use: never Living arrangements: with family Gender identity (if verbalized by the patient): Female Comments At time of signature, agree with nursing past medical, surgical, social and family history. There is no relevant family history pertinent to the presenting complaint. Exam Narrative: GENERAL: This is a well-nourished, well-developed patient, in no apparent distress. HEAD: normocephalic, atraumatic. EYES: PERRL. Sclera clear/white. Vision is grossly intact. EARS: External ears normal NOSE: External nose normal NECK: Neck supple, non-tender without lymphadenopathy, masses or thyromegaly. CARDIOVASCULAR: Regular rate and rhythm without murmurs, gallops, or rubs. RESPIRATORY: Clear to auscultation. Breath sounds equal bilaterally. No wheezes, rales, or rhonchi. SKIN: warm, Dry, intact with no suspicious lesions or rash, good texture and turgor. small erythematous area to skin of L forearm and R upper arm. no papules or vesicles noted. NEURO: awake, alert, and oriented to person, place and time. There were no obvious focal neurologic abnormalities. EXTREMITIES: No joint tenderness, effusion, or edema noted. Course Course Level of Care: Express Care Visit Vital Signs Vital signs: Vital Signs Temperature 37.1 C 04/16/24 13:18 Pulse Rate 85 04/16/24 13:18 Respiratory Rate 04/16/24 13:18 Blood Pressure 122/80 04/16/24 13:18 Pulse Oximetry 100 04/16/24 13:18 Oxygen Delivery Room Air 04/16/24 13:18 Temperature 37.1 C 04/16/24 13:18 Pulse Rate 85 04/16/24 13:18 Respiratory Rate 04/16/24 13:18 Blood Pressure 122/80 04/16/24 13:18 Pulse Oximetry
== END 2024-04-16 13:51 | disposition home or self-care (01) ==
PROVIDERS: Emergency Provider Nurse Practitioner Family; PCP Nurse Practitioner Family
DX: L25.9 Unspecified contact dermatitis, unspecified cause (principal); F17.290 Nicotine dependence, other tobacco product, uncomplicated
CPT/HCPCS: 99213; G0463

== ENCOUNTER 2024-06-17 09:27 | Emergency (ER) | payer OTHER, MEDICAID, SELFPAY ==
[2024-06-17 09:35] VITALS: BP 133/85; PULSE 73; RESP 16; TEMP 36.7; O2SAT 100
--- NOTE | 2024-06-17 10:14 | ED.GENADULT ---
HPI - General Adult General Chief complaint: Dental/Oral Stated complaint: infected tooth History of Present Illness HPI narrative: Patient presents for evaluation of right lower dental pain. She indicates her pain has been bothersome for quite sometime although she does not provide me with an exact date of symptom onset. She states pain is throbbing, 8/10 in severity. She denies any fever, chills, nausea, vomiting, facial swelling. She tried taking ibuprofen for symptoms without considerable improvement thereafter. She is trying to schedule an appt with a dentist. She states she has had problems doing so due to insurance issues. She does not smoke. Related Data Allergies Allergy/AdvReac Type Severity Reaction Status Date / Time Sulfa (Sulfonamide AdvReac Severe Hallucinati Verified 03/14/24 12:05 Antibiotics) ng Review of Systems Review of Systems: CONSTITUTIONAL: Denies fever, chills, or sweats. EYES: Denies visual changes, redness, or discharge. ENT: Reports right lower dental pain. Denies rhinorrhea, congestion, sore throat, or otalgia. CARDIOVASCULAR: Denies chest pain, palpitations, or edema. RESPIRATORY: Denies cough or dyspnea. GASTROINTESTINAL: Denies abdominal pain, nausea, vomiting, or diarrhea. GENITOURINARY: Denies dysuria or hematuria. SKIN: Denies rash or itching. MUSCULOSKELETAL: Denies back pain, joint pain, or myalgia. NEUROLOGIC: Denies headache, numbness, dizziness, or weakness. PSYCHIATRIC: Denies anxiety or depression. [facility] Past Medical History Medical History Asthma as child Hx of migraines Seasonal allergies Surgical History Surgical History History of loop electrical excision procedure (LEEP) Previous section X4 [place] teeth extracted Family History Family History Mother COPD (chronic obstructive pulmonary disease) Asthma Cervical cancer Social History Social History Smoking packs per day: 0.5 Smoking cigarettes per day: 10.0 Years smoked: 10 Smoking pack-years: 5.00 Smoking status: Current every day smoker Tobacco type: e-cigarettes/vaping Additional smoking assessment comments: former cigatette use now vapes Alcohol intake: current Alcohol use details: social Substance use: never Living arrangements: with family Gender identity (if verbalized by the patient): Female Exam Narrative: GENERAL: Well-appearing, well-nourished, and in no acute distress. HEAD: Normocephalic, atraumatic. EYES: PERRLA and EOMI. ENT: Nares clear, no rhinorrhea or epistaxis. Mucous membranes moist. Oropharynx without tonsillar hypertrophy exudate or other lesions. Bilateral TMs pearly rose nonbulging. There is a darkened appearance to tooth #30. There is tenderness to tooth #30. No visible or palpable abscess NECK: Supple. No adenopathy or masses. No carotid bruits or JVD CHEST: Clear to auscultation. No respiratory distress. No wheezes rales or rhonchi HEART: Regular rate and rhythm. No murmur heard. Normal peripheral pulses. ABDOMEN: Soft, nontender, nondistended, normal active bowel sounds. EXTREMITIES: Normal range of motion. No edema. SKIN: Warm, dry, no rash. NEURO: No focal deficits. Alert and oriented x3. PSYCH: Normal mood and affect. Course Course Emergency Course: This is a 39-year-old female who presented for evaluation of right lower dental pain. She has some tenderness over tooth #30. She could have an evolving infection although there is no drainable fluid collection on exam today. Will dc with PCN and tramadol. She should follow up with dentist and PCP. Go to the ER for worsening symptoms. Pt in agreement with plan of care. Level of Care: Express Care Visit Vital Signs Vital signs:
== END 2024-06-17 10:06 | disposition home or self-care (01) ==
PROVIDERS: Emergency Provider Nurse Practitioner; PCP Nurse Practitioner Family
DX: K08.89 Other specified disorders of teeth and supporting structures (principal); F17.290 Nicotine dependence, other tobacco product, uncomplicated
CPT/HCPCS: 99213; G0463

== ENCOUNTER 2024-08-07 09:42 | Emergency (ER) | payer OTHER, MEDICAID, SELFPAY ==
--- NOTE | ~2024-08-07 | XR_ITS ---
XR foot LT min 3V Ordering provider: Shakira Cortes APRN History: . injury; pain @ 5 digit and lateral foot . Comparison: December 25, 2023 FINDINGS: BONES: Fracture in the midshaft of the proximal phalanx of the little toe. JOINT SPACES: Narrowing of the proximal and distal interphalangeal joints.. No tarsal coalition. SOFT TISSUES: Normal. IMPRESSION: Fracture of the proximal phalanx of the little toe with no significant displacement. Reviewed, dictated and finalized at location [facility]. [facility] TESTER IMPRESSION: Fracture of the proximal phalanx of the little toe with no significant displace ment.
[2024-08-07 10:20] VITALS: BP 125/78; PULSE 74; RESP 16; TEMP 36.6; O2SAT 100
--- NOTE | 2024-08-07 21:08 | ED_ITS ---
HPI - Extremity Injury (Lower) General Chief Complaint: Extremity Injury, Lower Stated Complaint: left foot pinky toe injury Time Seen by Provider: 08/07/24 10:42 Source: patient, RN notes reviewed and old records reviewed Mode of arrival: ambulatory Limitations: no limitations History of Present Illness HPI Narrative: 39-year-old female to Express Care with complaint left lateral pain radiating from 5th digit. Patient states while ambulating last night she caught her pinky toe on the tire of a lawnmower. Patient concerned for fracture. Patient denies numbness, tingling, weakness. Patient states that she wears steel-toed boots at work and was unable to work today because she could not get her boots on. Patient has attempted to treat at home with elevation and ice as well as [id number] medications. Patient able to ambulate with slow and steady gait without difficulty. Patient resting in exam room in no acute distress. Related Data Home Medications ?Medication ?Instructions ?Recorded ?Confirmed ?Last Taken ?Type medroxyprogesterone 150 mg/mL 150 mg IM .every 3 months 08/07/24 08/07/24 Unknown History intramuscular syringe Allergies Allergy/AdvReac Type Severity Reaction Status Date / Time Sulfa (Sulfonamide AdvReac Severe Hallucinati Verified 08/07/24 10:17 Antibiotics) ng Review of Systems Review of Systems: All systems reviewed & are unremarkable except as noted in HPI and below Constitutional: Constitutional: Reports no additional constitutional complaints Eyes: Eyes: Reports no additional eye complaints ENT: Reports system reviewed and no additional complaints, except as documented Cardiovascular: Cardiovascular: Reports no additional cardiovascular complaints, Denies chest pain and Denies dyspnea Respiratory: Respiratory: Reports no additional respiratory complaints, Denies cough and Denies dyspnea Musculoskeletal: Musculoskeletal: Reports as per HPI Comments: Left lateral foot pain; pain to 5th digit left foot Neurologic: Reports system reviewed and no additional complaints, except as documented Psychiatric: Psychiatric: Reports no additional psychiatric complaints PMFSH Past Medical History Medical History Hx of migraines Asthma as child Seasonal allergies Surgical History Surgical History History of loop electrical excision procedure (LEEP) Previous section X4 [place] teeth extracted Family History Family History Mother COPD (chronic obstructive pulmonary disease) Asthma Cervical cancer Social History Social History Smoking packs per day: 0.5 Smoking cigarettes per day: 10.0 Years smoked: 10 Smoking pack-years: 5.00 Smoking status: Current every day smoker Tobacco type: e-cigarettes/vaping Additional smoking assessment comments: former cigatette use now vapes Alcohol intake: current Alcohol use details: social Substance use: never Living arrangements: with family Gender identity (if verbalized by the patient): Female Comments At the time of my signature, I reviewed and agree with the nursing past medical, surgical, social, and family history. There is no relevant family history pertinent to the patient complaint. Exam Const: General: cooperative, healthy appearing, no acute distress, alert and well nourished Nutritional Appearance: well nourished Orientation/consciousness: patient oriented x3 Limitations: no limitations HENMT: Head: normal to inspection Ears: external ears normal Face/Nose/Sinus: Normal external nose present, Normal nares present, normal facial exam, No erythema and No edema Face and sinus: normal facial exam, no erythema and no edema Mouth: Yes Normal oral and palatal mucosa present Eyes: General: appearance normal, both eyes and all related structures Neck: Neck: normal visual inspection, full ROM and no meningeal signs Chest: Chest palpation & inspection: normal inspection of the chest Resp: Effort & Inspection: normal respiratory effort and able to speak in complete sentences Cardio: Jugular venous distension: no JVD Rate: regular rate Rhythm: regular rhythm Back/Spine/Pelvis: Cervical Spine: cervical ROM normal Skin: General skin exam: normal color, no rashes or lesions noted and turgor normal Neuro: General: patient oriented x3, gait normal, moves all extremities and no meningeal signs Speech: normal speech Gait exam (Neuro): Normal gait present Extrem: General: capillary refill normal Left lower extremity: foot Details: normal capillary refill, tenderness Location: of the dorsal foot Location: distally and laterally and of the base of the 5th metatarsal and ecchymosis ( proximal dorsal 5th digit left foot) Psych: Appearance: grossly normal and well kempt Course Course Emergency Course: Some parts of this dictation were generated by voice recognition software and may contain typographical and/or grammatical inaccuracies. Level of Care: Express Care Visit Vital Signs Vital signs: Vital Signs Temperature 36.6 C 08/07/24 10:20 Pulse Rate 74 08/07/24 10:20 Respiratory Rate 16 08/07/24 10:20 Blood Pressure 125/78 08/07/24 10:20 Pulse Oximetry 100 08/07/24 10:20 Oxygen Delivery Room Air 08/07/24 10:20 Temperature 36.6 C 08/07/24 10:20 Pulse Rate 74 08/07/24 10:20 Respiratory Rate 16 08/07/24 10:20 Blood Pressure 125/78 08/07/24 10:20 Pulse Oximetry 100 08/07/24 10:20 Oxygen Delivery Room Air 08/07/24 10:20 reviewed MDM - Extremity Injury (Lower) MDM Narrative Medical decision making narrative: 39-year-old female to Express Care with complaint left lateral pain radiating from 5th digit. Patient states while ambulating last night she caught her pinky toe on the tire of a lawnmower. Patient concerned for fracture. Patient denies numbness, tingling, weakness. Patient states that she wears steel-toed boots at work and was unable to work today because she could not get her boots on. Angelica ent has attempted to treat at home with elevation and ice as well as [id number] medications. Patient able to ambulate with slow and steady gait without difficulty. Patient resting in exam room in no acute distress. on exam, tenderness and edema to left distal lateral foot and 5th digit left foot. Ecchymosis present to proximal dorsal aspect 5th digit. radiology impression: Fracture of the proximal phalanx of the little toe with no significant displacement. Patient is sitting uncomfortably in exam room nontoxic in appearance. Patient appropriate for outpatient treatment and follow-up. Discharge instructions reviewed with patient, as well as provided in writing per nursing staff. The instructions also include specific and strict return/GO TO THE ER as well as f/u information. All questions have been answered, and the patient deny any further questions with discharge and discharge plan. Some parts of this dictation were generated by voice recognition software and may contain typographical and/or grammatical inaccuracies. Differential Diagnosis Differential diagnosis: Likely ankle sprain and strain, acute internal derangement of knee, fracture of femur, fracture of hip, puncture wound of foot, fracture of toe and ankle fracture Imaging Data Radiologist's impression: XR foot LT min 3V Ordering provider: Shakira Cortes APRN History: . injury; pain @ 5 digit and lateral foot . Comparison: December 25, 2023 FINDINGS: BONES: Fracture in the midshaft of the proximal phalanx of the little toe. JOINT SPACES: Narrowing of the proximal and distal interphalangeal joints.. No tarsal coalition. SOFT TISSUES: Normal. IMPRESSION: Fracture of the proximal phalanx of the little toe with no significant displacement. Discharge Plan Discharge Clinical Impression: Closed fracture of fifth toe of left foot Patient Disposition: Home, Self-Care Condition: Stable Instructions: Toe Fracture (ED) Additional Instructions: alternate Tylenol and ibuprofen as needed for pain or swelling rest, ice, elevate, protect from further injury for new or worsening symptoms please go directly to the emergency department Patient Language: Korean Prescriptions: No Action penicillin V potassium 500 mg tablet 500 mg PO Q6H 10 Days Qty: 40 0RF tramadol 50 mg tablet 50 mg PO Q8H PRN (Reason: pain) Qty: 15 0RF medroxyprogesterone 150 mg/mL syringe 150 mg IM .every 3 months Follow-up/Referrals: Zepeda,Kylie Garcia APN [Primary Care Provider] - Stand Alone Forms: Work/School Release IP
== END 2024-08-07 11:22 | disposition home or self-care (01) ==
PROVIDERS: Emergency Provider Nurse Practitioner Family; PCP Nurse Practitioner Family
DX: S92.512A Displaced fracture of proximal phalanx of left lesser toe(s), initial encounter for closed fracture (principal); W22.8XXA Striking against or struck by other objects, initial encounter; F17.290 Nicotine dependence, other tobacco product, uncomplicated
CPT/HCPCS: 73630; 99214; G0463

== ENCOUNTER 2025-01-26 10:53 | Emergency (ER) | payer OTHER, MEDICAID, SELFPAY ==
--- OUTSIDE RECORDS SUMMARY | 2025-01-26 10:55 | XMS_ITS | Clinical Summary ---
Author Organization [facility] Address [address] [place] [address] Phone Care Team Providers Care Pearl Peller Name Role Phone Kylie Zepeda APRN, CNP Primary Care Provider [phone] Allergies Active Allergy Reactions Criticality Noted Date Comments Sulfa Antibiotics Unknown 07/26/2017 Medications MedroxyPROGEST ERone Acetate (DEPO-PROVERA IM) by Intramuscular route. Active Social History Tobacco Use Types Packs/Day Years Used Date Smoking Tobacco: Every Day Cigarettes Smokeless Tobacco: Never Alcohol Use Standard Drinks/Week Comments No 0 (1 standard drink = 0.6 oz pur e alcohol) Comments No Sex and Gender Information Value Date Recorded Sex Assigned at Not on file Legal Sex Female 7:36 PM CDT Gender Identity Not on file Sexual Orientation Not on file Last Filed Vital Signs Vital Sign Reading Time Taken Comments Blood Pressure 128/75 07/26/2017 12:52 PM COORDINATE MEASURING MACHINE PROGRAMMER Pulse 78 07/26/2017 2:19 PM COORDINATE MEASURING MACHINE PROGRAMMER Temperature 37.1 C (98.8 F) 07/26/2017 12:52 PM COORDINATE MEASURING MACHINE PROGRAMMER Respiratory Rate 18 07/26/2017 12:52 PM COORDINATE MEASURING MACHINE PROGRAMMER Oxygen Saturation 99% 07/26/2017 2:19 PM COORDINATE MEASURING MACHINE PROGRAMMER Inhaled Oxygen Concentration - - Weight 77.1 kg (170 lb) 07/26/2017 12:52 PM COORDINATE MEASURING MACHINE PROGRAMMER Height 157.5 cm (5' 2) 07/26/2017 12:52 PM COORDINATE MEASURING MACHINE PROGRAMMER Body Mass Index 31.09 07/26/2017 12:52 PM COORDINATE MEASURING MACHINE PROGRAMMER Plan of Treatment Health Maintenance Due Date Last Done Comments Hepatitis C Virus (HCV) Screening 1986 TdaP Immunization 1986 Hepatitis B Immunization (1 of 3 - 19+ 3-dose series) 2005 Influenza Immunization (#1) 2024 SARS-COV-2 Immunization (2023-25 season) 2024 Respiratory Syncytial Virus (RSV) Immunization (Adult) (1 - 1-dose 75+ series) 2061 Meningococcal Immunization (ACWY) Aged Out No longer eligible based on patient's age to complete this topic Pneumococcal Immunization Combined Aged Out No longer eligible based on patient's age to complete this topic Rotavirus Immunization Aged Out No lo nger eligible based on patient's age to complete this topic Insurance MEDICAID [employer] Care Teams Pearl Peller Relationship Specialty Start Date End Date Kylie Zepeda APRN, [address] [place] [address] PCP - General Family Medicine 11/30/21
[2025-01-26 11:06] VITALS: BP 117/80; PULSE 92; RESP 20; TEMP 36.7; O2SAT 100
--- NOTE | 2025-01-26 11:20 | ED.NAVMDI ---
HPI - Nausea/Vomiting/Diarrhea General Chief complaint: Nausea/Vomiting/Diarrhea Stated complaint: stomach bug, fever and diarrhea Time Seen by Provider: 01/26/25 11:20 Source: patient, RN notes reviewed and old records reviewed Mode of arrival: ambulatory Limitations: no limitations History of Present Illness HPI Narrative: 40 year old female who presents to [facility] care with complaints of nausea and watery diarrhea for the past 2 days. Patient reports that she tried to go to work yesterday but they sent her home due to having to use restroom frequently. Patient reports that there had been one of her coworkers who has been ill with virus with similar symptoms. Patient reports that she has had nausea without vomiting and has had frequent watery stools. Patient reports some lower abdomen tenderness, denies any sharp pain. Patient reports no urinary symptoms. She states that she had a bad headache yesterday also has taken Ibuprofen. Patient reports that she has had some chills and sweats did not check herself for fever. Patient reports that she has had 4 watery stools since 0400, elicited complaint: nausea and diarrhea Onset (ago): day(s) (2 days) Description of diarrhea: watery Associated nausea: Yes Associated abdominal pain: Yes Location of pain: pelvis Pain scale (0-10): 3 Quality: cramping and other (colicky) Treatment prior to arrival: NSAIDs and other (light diet yesterday has not eaten today) Related Data Allergies Allergy/AdvReac Type Severity Reaction Status Date / Time Sulfa (Sulfonamide AdvReac Severe Hallucinati Verified 01/26/25 11:03 Antibiotics) ng Review of Systems Review of Systems: CONSTITUTIONAL: Reports unknown fever,positive for chills, or sweats. EYES: Denies visual changes, redness, or discharge. ENT: Denies rhinorrhea, congestion, sore throat, or otalgia. CARDIOVASCULAR: Denies chest pain, palpitations, or edema. RESPIRATORY: Denies cough or dyspnea. GASTROINTESTINAL: reports lower abdomen cramping colicky abdominal pain,positive nausea,no vomiting, positive for diarrhea. GENITOURINARY: Denies dysuria or hematuria. SKIN: Denies rash or itching. MUSCULOSKELETAL: Denies back pain, joint pain, or myalgia. NEUROLOGIC: Denies headache, numbness, or weakness. PSYCHIATRIC: Positive for anxiety or depression. All systems reviewed & are unremarkable except as noted in HPI and below PMFSH Past Medical History Medical History Hx of migraines Asthma as child Seasonal allergies Surgical History Surgical History History of loop electrical excision procedure (LEEP) Previous section X4 [place] teeth extracted Family History Family History Mother COPD (chronic obstructive pulmonary disease) Asthma Cervical cancer Social History Social History Smoking packs per day: 0.5 Smoking cigarettes per day: 10.0 Years smoked: 10 Smoking pack-years: 5.00 Smoking status: Current every day smoker Tobacco type: e-cigarettes/vaping Additional smoking assessment comments: former cigatette use now vapes Alcohol intake: current Alcohol use details: social Substance use: never Living arrangements: with family Gender identity (if verbalized by the patient): Female Comments At time of signature, agree with nursing past medical, surgical, social and family history. There is no relevant family history pertinent to the presenting complaint Exam Narrative: GENERAL: Well-appearing, well-nourished, and in no acute distress. HEAD: Normocephalic, atraumatic. EYES: PERRLA and EOMI. ENT: Nares clear, no rhinorrhea or epistaxis. Mucous membranes moist. TM's normal throat pink with no swelling NECK: Supple. no lymphadenopathy CHEST: Clear to auscultation. No respiratory distress.SAO2 100% no cough noted HEART: Regular rate and rhythm. No murmur heard. Normal peripheral pulses. ABDOMEN: Soft, nontender on palpation, no McBurney point tenderness or any suprapubic tenderness nondistended, hyper-active bowel sounds. EXTREMITIES: Normal range of motion. No edema. SKIN: Warm, dry, no rash. NEURO: No focal deficits. Alert and oriented x3. Course Course Emergency Course: Patient is aware of diagnosis, understands and agrees to treatment plan.? Anticipatory guidance given.? Patient agrees to follow-up as directed and is aware of reasons to seek care at the emergency department. Portions of this record may have been created with voice recognition software Level of Care: Express Care Visit Vital Signs Vital signs: Vital Signs Temperature 36.7 C 01/26/25 11:06 Pulse Rate 92 01/26/25 11:06 Respiratory Rate 20 01/26/25 11:06 Blood Pressure 117/80 01/26/25 11:06 Pulse Oximetry 100 01/26/25 11:06 Oxygen Delivery Room Air 01/26/25 11:06 Temperature 36.7 C 01/26/25 11:06 Pulse Rate 92 01/26/25 11:06 Respiratory Rate 20 01/26/25 11:06 Blood Pressure 117/80 01/26/25 11:06 Pulse Oximetry 100 01/26/25 11:06 Oxygen Delivery Room Air 01/26/25 11:06 Reviewed MDM - Nausea/Vomiting/Diarrhea Differential Diagnosis Differential diagnosis: Likely traveler's diarrhea, gastroenteritis, dehydration and other (nausea, viral infection) Medical Records Attestation: I reviewed the patient's medical records. Lab Data Attestation: I reviewed the patient's lab results. Lab results narrative: Influenza A negative, Influenza B negative, COVID antigen negative Labs: Lab Results 01/26/25 Range/Units 11:30 POC Influenza A Ag Negative (Negative) POC Influenza B Ag Negative (Negative) POC SARS CoV-2 Ag Negative (Negative) reviewed Critical Care Time Critical Care Time Critical Care Time: No Discharge Plan Discharge Clinical Impression: Gastroenteritis Patient Disposition: Home Condition: Stable Instructions: Clear Liquid Diet (ED), Gastroenteritis (ED) Additional Instructions: Clear liquids for the next 8-10 hours, then advance to a bland diet as tolerated A bland diet can consist of--BRAT diet which is bananas, rice, applesauce, and toast Avoid fried, greasy, fatty, fried foods Avoid caffeine, nicotine, and alcohol Return to your regular diet in the next 3-4 days Medication as directed for nausea and vomiting Monitor for any fevers Tylenol only for pain [id number] Imodium for diarrhea Follow-up with her PCP if continued problems or uncontrolled pain If your symptoms persist, change or worsen significantly before you can contact your personal physician then please, without delay, go to the emergency department for further evaluation. Follow-up with PCP in 7-10 days or sooner if needed Patient Language: Upper Sorbian Prescriptions: New ondansetron 4 mg tablet,disintegrating 4 mg PO Q6H PRN (Reason: nausea and vomiting) Qty: 20 0RF Rx Instructions: whatever preparation covered by insurance Follow-up/Referrals: Zepeda,Kylie Garcia APN [Primary Care Provider] - Stand Alone Forms: Work/School Release IP Time of Disposition: 11:47 Quality [place] Coma Scale Eyes: Open Verbal: Oriented and Alert Motor: Follows Commands [place] Coma Total Score: 15
[2025-01-26 11:46] LABS: EDCOVIDSCREEN Negative (Negative); EDINFLUASCREEN Negative (Negative); EDINFLUBSCREEN Negative (Negative)
== END 2025-01-26 11:52 | disposition home or self-care (01) ==
PROVIDERS: Emergency Provider Registered Nurse; PCP Nurse Practitioner Family
DX: K52.9 Noninfective gastroenteritis and colitis, unspecified (principal); Z20.822 Contact with and (suspected) exposure to COVID-19; F17.290 Nicotine dependence, other tobacco product, uncomplicated
CPT/HCPCS: 87426; 87804; 99213; G0463

== ENCOUNTER 2025-04-18 15:04 | Emergency (ER) | payer OTHER, SELFPAY ==
--- OUTSIDE RECORDS SUMMARY | 2025-04-18 15:06 | XMS_ITS | Clinical Summary ---
Author Organization [facility] Address [address] [place] [address] Phone Care Team Providers Care Pot Lining Supervisor Name Role Phone Kylie Zepeda APRN, CNP Primary Care Provider [phone] Allergies Active Allergy Reactions Criticality Noted Date [...] Comments Blood Pressure 128/75 07/26/2017 12:52 PM BANDAGE WRAPPING MACHINE OPERATOR Pulse 78 07/26/2017 2:19 PM BANDAGE WRAPPING MACHINE OPERATOR Temperature 37.1 C (98.8 F) 07/26/2017 12:52 PM BANDAGE WRAPPING MACHINE OPERATOR Respiratory Rate 18 07/26/2017 12:52 PM BANDAGE WRAPPING MACHINE OPERATOR Oxygen Saturation 99% 07/26/2017 2:19 PM BANDAGE WRAPPING MACHINE OPERATOR Inhaled Oxygen Concentration - - Weight 77.1 kg (170 lb) 07/26/2017 12:52 PM BANDAGE WRAPPING MACHINE OPERATOR Height 157.5 cm (5' 2) 07/26/2017 12:52 PM BANDAGE WRAPPING MACHINE OPERATOR Body Mass Index 31.09 07/26/2017 12:52 PM BANDAGE WRAPPING MACHINE OPERATOR Plan of Treatment Health Maintenance Due Date Last Done Comments Hepatitis C Virus (HCV) Screening 1986 TdaP Immunization 1986 Hepatitis B Immunization (1 of 3 - 19+ 3-dose series) 2005 Pap Smear 2007 Human Papillomavirus (HPV) Immunization (1 - 3-dose SCDM series) 2013 Cervical Cancer Screening (CCS) 01/03/2016 HPV/Cotest 01/03/2016 SARS-COV-2 Immunization ( - 2023- season) 2024 Influenza Immunization (#1) 2025 Respiratory Syncytial Virus (RSV) Immunization (Adult) (1 [...] Insurance MED[employer]ID [employer] Care Teams Pot Lining Supervisor Relationship Specialty Start Date End Date Kylie Zepeda APRN, [address] [place] [address] PCP - General Family Medicine 11/30/21
[2025-04-18 15:11] VITALS: BP 135/85; PULSE 112; RESP 16; TEMP 36.7; O2SAT 100
--- NOTE | 2025-04-18 15:29 | ED.GENADULT ---
HPI - General Adult General Chief complaint: Unspecified Stated complaint: Vomiting Time Seen by Provider: 04/18/25 15:29 Source: patient Mode of arrival: ambulatory Limitations: no limitations History of Present Illness HPI narrative: 40 yo F presents with c/o N/V starting this AM around 3am. c/o fatigue, bodyaches, fever. Able to drink water but has not had any solids. No URI symptoms. Denies UTI symptoms. Denies . Here for work note. All systems reviewed and negative except as noted above. Related Data Allergies Allergy/AdvReac Type Severity Reaction Status Date / Time Sulfa (Sulfonamide AdvReac Severe Hallucinati Verified 01/26/25 11:03 Antibiotics) [facility] Past Medical History Medical History Hx of migraines Asthma as child Seasonal allergies Surgical History Surgical History History of loop electrical excision procedure (LEEP) Previous section X4 [place] teeth extracted Family History Family History Mother COPD (chronic obstructive pulmonary disease) Asthma Cervical cancer Social History Social History Smoking packs per day: 0.5 Smoking cigarettes per day: 10.0 Years smoked: 10 Smoking pack-years: 5.00 Smoking status: Current every day smoker Tobacco type: e-cigarettes/vaping Additional smoking assessment comments: former cigatette use now vapes Alcohol intake: current Alcohol use details: social Substance use: never Living arrangements: with family Gender identity (if verbalized by the patient): Female Comments At time of signature, agree with nursing past medical, surgical, social and family history. There is no relevant family history pertinent to the presenting complaint. Exam Narrative: GENERAL: This is a well-nourished, well-developed patient, in no apparent distress. HEAD: normocephalic, atraumatic. EYES: PERRL. Sclera clear/white. Vision is grossly intact. EARS: External ears normal, auditory canals clear and without drainage, TMs normal without perforation. Hearing grossly intact. NOSE: External nose normal with no obvious nasal discharge, nares without redness, no rhinorrhea. THROAT: Mucous membranes moist, posterior pharynx clear. NECK: Neck supple, non-tender without lymphadenopathy, masses or thyromegaly. CARDIOVASCULAR: Regular rate and rhythm without murmurs, gallops, or rubs. RESPIRATORY: Clear to auscultation. Breath sounds equal bilaterally. No wheezes, rales, or rhonchi. GASTROINTESTINAL: Abdomen soft, non-tender, nondistended. Bowel sounds are active. No hepato-splenomegaly, or palpable masses. No guarding. SKIN: warm, Dry, intact with no suspicious lesions or rash, good texture and turgor. NEURO: awake, alert, and oriented to person, place and time. There were no obvious focal neurologic abnormalities. EXTREMITIES: No joint tenderness, effusion, or edema noted. Course Course Level of Care: Express Care Visit Vital Signs Vital signs: Vital Signs Temperature 36.7 C 04/18/25 15:11 Pulse Rate 112 H 04/18/25 15:11 Respiratory Rate 16 04/18/25 15:11 Blood Pressure 135/85 04/18/25 15:11 Pulse Oximetry 100 04/18/25 15:11 Oxygen Delivery Room Air 04/18/25 15:11 Temperature 36.7 C 04/18/25 15:11 Pulse Rate 112 H 04/18/25 15:11 Respiratory Rate 16 04/18/25 15:11 Blood Pressure 135/85 04/18/25 15:11 Pulse Oximetry 100 04/18/25 15:11 Oxygen Delivery Room Air 04/18/25 15:11 At time of signature, agree with nursing past medical, surgical, social and family history. There is no relevant family history pertinent to the presenting complaint. Medical Decision Making MDM Narrative Medical decision making narrative: Patient is well-appearing, nontoxic. No abdominal tenderness on exam. No vomiting while at [facility]. Will discharge with Zofran. Vital Signs Vital Signs: Vital Signs Temperature 36.7 C 04/18/25 15:11 Pulse Rate 112 H 04/18/25 15:11 Respiratory Rate 16 04/18/25 15:11 Blood Pressure 135/85 04/18/25 15:11 Pulse Oximetry 100 04/18/25 15:11 Oxygen Delivery Room Air 04/18/25 15:11 Temperature 36.7 C 04/18/25 15:11 Pulse Rate 112 H 04/18/25 15:11 Respiratory Rate 16 04/18/25 15:11 Blood Pressure 135/85 04/18/25 15:11 Pulse Oximetry 100 04/18/25 15:11 Oxygen Delivery Room Air 04/18/25 15:11 Discharge Plan Discharge Clinical Impression: Viral gastroenteritis Patient Disposition: Home Condition: Stable Instructions: Gastroenteritis (ED) Additional Instructions: Take Odansetron as needed to treat nausea and vomiting. this medication may cause constipation. Drink at least 64 oz of water a day. See your doctor if vomiting is not improving. If you have severe abdominal pain go to the ER. Patient Language: [place] Prescriptions: New ondansetron 4 mg tablet,disintegrating 4 mg PO Q8H PRN (Reason: nausea and vomiting) Qty: 12 0RF Follow-up/Referrals: Duane,Kylie Garcia APN [Primary Care Provider, Unknown] Stand Alone Forms: Work/School Release IP Time of Disposition: 15:35
== END 2025-04-18 15:42 | disposition home or self-care (01) ==
PROVIDERS: Emergency Provider Nurse Practitioner Family; PCP Nurse Practitioner Family
DX: A08.4 Viral intestinal infection, unspecified (principal); F17.290 Nicotine dependence, other tobacco product, uncomplicated
CPT/HCPCS: 99213; G0463